=== PATIENT | female | born 1995 | race Caucasian/White ===

== ENCOUNTER 2019-11-01 08:39 | Inpatient (IN) | payer MEDICAID ==
[2019-11-01] MEDS ORDERED: Citric Acid/Sodium Citrate Solution 30 ML Cup PO ONE (08:55)
[2019-11-01] MEDS ORDERED: Sodium Chloride 0.9% 10 ML Syringe FLUSH PRN (08:55)
[2019-11-01] MEDS ORDERED: Metoclopramide 10 MG/2 ML SDV IVPUSH ONE (08:55)
[2019-11-01] MEDS ORDERED: Lactated Ringers 1,000 ML IV SCH (09:00)
--- NOTE | 2019-11-01 09:09 | PCM.HP.2 ---
H&P History of Present Illness - General Date of Service: 11/01/19 Admit Problem/Dx: Admission Diagnosis/Problem Admission Diagnosis/Problem Gestational hypertension Source of Information: Patient History Limitations: Reports: No Limitations - History of Present Illness Initial Comments - Free Text/Narative: Patient is a 24 y/o at 37 5/7 wks who presents after findings of elevated BP's at clinic/NST appointment. Was seen earlier this week for routine appointment and noted to have 2 mild range BP's in clinic. When presented to L&D BP's normal. Was asked to follow up today. Having some intermittent headaches. No vision changes. Notes good FM - Related Data Allergies/Adverse Reactions: Allergies Allergy/AdvReac Type Severity Reaction Status Date / Time No Known Allergies Allergy Verified 07/01/15 08:22 Home Medications: Home Meds Acetaminophen/oxyCODONE [Percocet 325-5 MG] 2 tab PO Q4H PRN #30 tablet [Rx] Ibuprofen [Motrin] 600 mg PO Q6H PRN #30 tablet 07/05/15 [Rx] Lanolin [Lansinoh HPA] 1 applic TOP ASDIRECTED PRN #30 tube 07/05/15 [Rx] Past Medical History Respiratory History: Reports: Asthma Neurological History: Reports: Migraines Other Dermatologic History: Eczema - Past Surgical History Female Surgical History: Reports: Section Social & Family History - Tobacco Use Smoking Status *Q: Never Smoker - Alcohol Use Alcohol Use History: No - Recreational Drug Use Recreational Drug Use: No H&P Review of Systems - Review of Systems: Review Of Systems: See Below General: Reports: No Symptoms HEENT: Reports: Headaches Pulmonary: Reports: No Symptoms Cardiovascular: Reports: No Symptoms Gastrointestinal: Reports: No Symptoms Genitourinary: Reports: No Symptoms Musculoskeletal: Reports: No Symptoms Skin: Reports: No Symptoms Psychiatric: Reports: No Symptoms Exam - Exam Exam: See Below - Exam General: Alert, Oriented, Cooperative Lungs: Clear to Auscultation, Normal Respiratory Effort Cardiovascular: Regular Rate, Regular Rhythm GI/Abdominal Exam: Soft, Non-Tender (Female) Exam: Normal External Exam Back Exam: Normal Inspection Extremities: Normal Inspection Skin: Warm, Dry, Intact - Problem List (1) 37 weeks gestation of SNOMED Code(s): 63965119 ICD Code: Z3A.37 - 37 WEEKS GESTATION OF Status: Acute Current Visit: Yes (2) Gestational hypertension SNOMED Code(s): 743682466 ICD Code: O13.9 - GESTATIONAL HTN W/O SIGNIFICANT PROTEINURIA, UNSP TRIMESTER Status: Acute Current Visit: Yes Qualifiers: Trimester: third trimester Qualified Code(s): O13.3 - Gestational [ -induced] hypertension without significant proteinuria, third trimester (3) History of SNOMED Code(s): 972882378 ICD Code: Z98.891 - HISTORY OF UTERINE SCAR FROM PREVIOUS SURGERY Status: Acute Current Visit: Yes Problem List Initiated/Reviewed/Updated: Yes Orders Last 24hrs: Active Orders 24 hr Category Date Time Status Patient Status [ADT] Routine ADT 11/01/19 08:55 Ordered Communication Order [RC] ROUTINE Care 11/01/19 08:55 Ordered Heart Tones [RC] PER UNIT ROUTINE Care 11/01/19 08:55 Ordered Non Stress Test [RC] PER UNIT ROUTINE Care 11/01/19 08:55 Ordered Peripheral IV Care [RC] . DIRECTED Care 11/01/19 08:55 Ordered Procedure Site Prep Instruct [RC] ASDIRECTED Care 11/01/19 08:55 Ordered Verify Patient Consent Obtain [RC] PER UNIT ROUTINE Care 11/01/19 08:55 Ordered Vital Signs [RC] PFP Care 11/01/19 08:55 Ordered ALANINE AMINOTRANSFERASE,ALT [CHEM] Routine Lab 11/01/19 08:55 Ordered ASPARTATE AMNIOTRANSFERASE,AST [CHEM] Routine Lab 11/01/19 08:55 Ordered CBC W/O DIFF,HEMOGRAM [HEME] Routine Lab 11/01/19 08:55 Ordered CREATININE W/GFR [CHEM] Routine Lab 11/01/19 08:55 Ordered PROTEIN/CREATININE RATIO,URINE [URCHEM] Routine Lab 11/01/19 08:55 Ordered RAPID PLASMA REAGIN,RPR [CHEM] Routine Lab 11/01/19 08:55 Ordered TYPE AND SCREEN [BBK] Routine Lab 11/01/19 08:55 Ordered Lactated Ringers @ 125 MLS/HR(1000ml) Med 11/01/19 09:00 Ordered Lactated Ringers [Ringers, Lactated] 1,000 ml IV ASDIRECTED Sodium Chloride 0.9% [Saline Flush] Med 11/01/19 08:55 Ordered 10 ml FLUSH ASDIRECTED PRN ceFAZolin [Ancef] 2 gm Med 11/01/19 08:55 Ordered Premix Bag 1 bag IV ONETIME Peripheral IV Insertion Adult [OM.PC] Routine Oth 11/01/19 08:55 Ordered Schedule Procedure [COMM] Per Unit Routine Oth 11/01/19 08:55 Ordered Resuscitation Status Routine Resus Stat 11/01/19 08:55 Ordered Medication Orders Cefazolin Sodium/Dextrose 2 gm (/ Premix) 50 mls @ 100 mls/hr IV ONETIME ONE Stop: 11/01/19 09:44 Lactated Ringer's (Ringers, Lactated) 1,000 mls @ 125 mls/hr IV ASDIRECTED JO Sodium Chloride (Saline Flush) 10 ml FLUSH ASDIRECTED PRN PRN Reason: Keep Vein Open Assessment/Plan Comment:: 24 y/o at 37 5/7 wks with findings of gestational HTN -- plan repeat c- section * Labs to be done * Close monitoring of BP's * NPO * Consent reviewed and signed * Anesthesia and Peds made aware
[2019-11-01] MEDS ORDERED: ceFAZolin 2 GM in Premix Bag 1 BAG IV ONE (09:15)
[2019-11-01] MEDS ORDERED: ceFAZolin 1 GM Vial ONE (09:18)
[2019-11-01] MEDS ORDERED: Oxytocin 10 Units/1 ML SDV ONE ×2 (09:19→12:25)
[2019-11-01] MEDS ORDERED: Ondansetron 4 MG/2 ML SDV ONE (09:21)
--- NOTE | 2019-11-01 09:26 | PCM.OPNOTE ---
- General Post-Op/Procedure Note Date of Surgery/Procedure: 11/01/19 Operative Procedure(s): Repeat low transverse Findings: Minimal scar tissue from previous surgery. Baby girl in vertex presentation. Weight of 6 lbs 4 oz. APGARS of 8 & 9. Normal appearance of the uterus, fallopian tubes, and ovaries Pre Op Diagnosis: 37 5/7 wks. Gestational HTN. Hx of Post-Op Diagnosis: Same Anesthesia Technique: Spinal Primary Surgeon: Linda Olivo Secondary Surgeon: Dany Hinojosa Anesthesia Provider: Fernandez Del Castillo Reason Director Learning And Development Was Necessary: BMI of patient. Speed/safety of procedure Pathology: Cord blood collected. Placenta discarded Fluid Replacement, Intraop: 1,700 Output, Urine Amount: 100 EBL in mLs: 500 Complications: None Condition: Good Free Text/Narrative:: The risks, benefits, indications, potential complications, and alternatives were explained to the patient and informed consent obtained. After induction of anesthesia, the patient was placed in a supine position and then draped and prepped in the usual sterile manner. A Pfannenstiel incision was made and carried down through the subcutaneous tissue to the fascia. Fascial incision was made and extended transversely. The fascia was from the underlying rectus tissue superiorly and inferiorly. The peritoneum was identified and entered. Peritoneal incision was extended longitudinally. The utero-vesical peritoneal reflection was incised transversely and the bladder flap was bluntly freed from the lower uterine segment. A low transverse uterine incision was made sharply with a scalpel and extended bluntly in a cephalocaudad direction. A baby girl was delivered from a vertex presentation with APGARS as above. After the umbilical cord was clamped and cut cord blood was obtained for evaluation. The placenta was removed intact and appeared normal. The uterus was exteriorized and cleared of clots. The uterine outline, tubes and ovaries appeared normal. The uterine incision was closed with running locked sutures of 0 Vicryl. Hemostasis was obtained with a single interrupted suture of 0 vicryl placed in figure of eight fashion and left aspect of hysterotomy. The uterus was then placed back into the abdomen. The infracolic gutters were cleared of blood clots. The fascia was then reapproximated with running sutures of 0 Vicryl. The subcutaneous tissue was irrigated with sterile warm normal saline, hemostasis obtained with cautery. This was closed with a running suture of 0 vicryl. The skin was reapproximated with running Subcuticular 4-0 monocryl sutures. Instrument, sponge, and needle counts were correct prior the abdominal closure and at the conclusion of the case.
--- NOTE | 2019-11-01 09:40 | PCM.PREANE ---
Preanesthetic Assessment - Anesthesia/Transfusion/Family Hx Anesthesia History: Prior Anesthesia Without Reaction - Review of Systems General: No Symptoms Pulmonary: No Symptoms Cardiovascular: No Symptoms Gastrointestinal: No Symptoms Neurological: No Symptoms Other: Reports: None - Physical Assessment NPO Status Date: 10/31/19 NPO Status Time: 21:00 Weight: 98.43 kg ASA Class: 3 (PI) Mental Status: Alert & Oriented x3 Airway Class: Mallampati = 1 Dentition: Reports: Normal Dentition Thyro-Mental Finger Breadths: 3 Mouth Opening Finger Breadths: 3 ROM/Head Extension: Full Lungs: Clear to Auscultation, Normal Respiratory Effort Cardiovascular: Regular Rate, Regular Rhythm - Lab Values: Laboratory Last Values WBC 11.41 K/mm3 (3.98-10.04) H 11/01/19 09:18 RBC 4.09 M/mm3 (3.98-5.22) 11/01/19 09:18 Hgb 12.9 gm/dl (11.2-15.7) 11/01/19 09:18 Hct 39.0 % (34.1-44.9) 11/01/19 09:18 MCV 95.4 fl (79.4-94.8) H 11/01/19 09:18 MCH 31.5 pg (25.6-32.2) 11/01/19 09:18 MCHC 33.1 g/dl (32.2-35.5) 11/01/19 09:18 RDW Std Deviation 43.7 fL (36.4-46.3) 11/01/19 09:18 Plt Count 236 K/mm3 (182-369) 11/01/19 09:18 MPV 9.5 fl (9.4-12.3) 11/01/19 09:18 - Allergies Allergies/Adverse Reactions: Allergies Allergy/AdvReac Type Severity Reaction Status Date / Time No Known Allergies Allergy Verified 07/01/15 08:22 - Acknowledgements Anesthesia Type Planned: Spinal Pt an Appropriate Candidate for the Planned Anesthesia: Yes Alternatives and Risks of Anesthesia Discussed w Pt/Guardian: Yes Pt/Guardian Understands and Agrees with Anesthesia Plan: Yes PreAnesthesia Questionnaire Cardiovascular History: Reports: Hypertension (pregnanacy induced) Respiratory History: Reports: Asthma Other Respiratory History: Childhood asthma Neurological History: Reports: Migraines Other Neuro History: Migraine headaches in early Other Dermatologic History: Eczema - Past Surgical History Female Surgical History: Reports: Section (06/2015) - SUBSTANCE USE Smoking Status *Q: Never Smoker Recreational Drug Use History: No - HOME MEDS Home Medications: Home Meds Acetaminophen/oxyCODONE [Percocet 325-5 MG] 2 tab PO Q4H PRN #30 tablet [Rx] Ibuprofen [Motrin] 600 mg PO Q6H PRN #30 tablet 07/05/15 [Rx] Lanolin [Lansinoh HPA] 1 applic TOP ASDIRECTED PRN #30 tube 07/05/15 [Rx] - CURRENT (IN HOUSE) MEDS Current Meds: Current Medications Cefazolin Sodium/Dextrose 2 gm (/ Premix) 50 mls @ 100 mls/hr IV ONETIME ONE Stop: 11/01/19 09:44 Lactated Ringer's (Ringers, Lactated) 1,000 mls @ 125 mls/hr IV ASDIRECTED JO Sodium Chloride (Saline Flush) 10 ml FLUSH ASDIRECTED PRN PRN Reason: Keep Vein Open Discontinued Medications Cefazolin Sodium (Ancef) Confirm Administered Dose 2 gm .ROUTE .STK-MED ONE Stop: 11/01/19 09:19 Citric Acid/Sodium Citrate (Bicitra Solution) 30 ml PO ONETIME ONE Stop: 11/01/19 08:56 Metoclopramide HCl (Reglan) 10 mg IVPUSH ONETIME ONE Stop: 11/01/19 08:56 Ondansetron HCl (Zofran) Confirm Administered Dose 4 mg .ROUTE .STK-MED ONE Stop: 11/01/19 09:22 Oxytocin (Pitocin) Confirm Administered Dose 10 unit .ROUTE .STK-MED ONE Stop: 11/01/19 09:20
[2019-11-01] MEDS ORDERED: FLU Vacc QS2019-20(6MOS+)/PF 60 MCG/0.5 ML SYRINGE IM ONE (10:15)
[2019-11-01] MEDS ORDERED: fentaNYL 100 MCG/2 ML SDV ONE (10:19)
[2019-11-01] MEDS ORDERED: Morphine PF 1 MG/ML Amp ONE (10:19)
[2019-11-01] MEDS ORDERED: fentaNYL 100 MCG/2 ML SDV IVPUSH PRN (12:00)
[2019-11-01] MEDS ORDERED: diphenhydrAMINE 50 MG/ML SDV IVPUSH PRN ×2 (12:00→14:23)
[2019-11-01] MEDS ORDERED: Ketorolac 30 MG/ML SDV ONE (12:28)
--- NOTE | 2019-11-01 12:51 | PCM.POSTAN ---
POST ANESTHESIA ASSESSMENT - MENTAL STATUS Mental Status: Alert, Oriented - VITAL SIGNS Vital Signs: Last Vital Signs Temp 97.5 F 11/01/19 12:36 Pulse 91 11/01/19 12:36 Resp 12 11/01/19 12:36 BP 143/78 H 11/01/19 12:36 Pulse Ox 99 11/01/19 12:36 - RESPIRATORY Respiratory Status: Respiratory Rate WNL, Airway Patent, O2 Saturation Stable - CARDIOVASCULAR CV Status: Pulse Rate WNL, Blood Pressure Stable - GASTROINTESTINAL GI Status: No Symptoms - PAIN Pain Score: 0 (post SAB) - POST OP HYDRATION Hydration Status: Adequate & Stable
[2019-11-01] MEDS ORDERED: Naloxone 0.4 MG/ML SDV IVPUSH PRN (14:23)
[2019-11-01] MEDS ORDERED: Sennosides 8.6 MG Tab PO PRN (14:23)
[2019-11-01] MEDS ORDERED: Acetaminophen/oxyCODONE 325-5 MG Tab PO PRN (14:23)
[2019-11-01] MEDS ORDERED: Dextrose 5%-Lactated Ringers 1,000 ML IV SCH (14:23)
[2019-11-01] MEDS ORDERED: Ondansetron 4 MG/2 ML SDV IV PRN (14:23)
[2019-11-01] MEDS: Ketorolac 30 MG/ML SDV IVPUSH SCH (18:37)
[2019-11-02] MEDS: Ketorolac 30 MG/ML SDV IVPUSH SCH ×2 (00:39→06:59)
--- NOTE | 2019-11-02 09:01 | PCM.SN ---
- Free Text/Narrative Note: note: Patient is doing well in the period. Minimal lochia, voiding well, ambulated without problems. Nursing without concerns. Patient is afebrile, vital signs are stable Vital signs are stable. Blood pressures are completely normal. Abdomen is flat, soft, uterus is below the umbilicus and is firm and nontender. Incision appears to be dry, intact, dressing was removed. It was left open to the air. Legs are nontender. Assessment: recovery going well. Plan: Routine care. Increase activity, diet. Remove IV tolerating fluids well. May shower. Indwelling bladder catheter has been removed. Patient has not voided yet. Patient be discharged home within the next 24-48 hours.
[2019-11-02] MEDS: Ibuprofen 600 MG Tab PO PRN (15:58)
[2019-11-02] MEDS: Docusate Sodium 100 MG Cap PO PRN (20:44)
[2019-11-02] MEDS: Acetaminophen/oxyCODONE 325-5 MG Tab PO PRN (20:44)
[2019-11-03] MEDS: Ibuprofen 600 MG Tab PO PRN ×3 (04:11→18:26)
--- NOTE | 2019-11-03 07:41 | PCM.SN ---
- Free Text/Narrative Note: note: Patient is doing well in the period. Minimal lochia, voiding well, ambulated without problems. Nursing without concerns. Patient is afebrile, vital signs are stable Abdomen is flat, soft, uterus is below the umbilicus and is firm and nontender. Incision dry, intact. Legs are nontender. Hemoglobin on first postoperative day was 10.8. Platelets are 178,000. Assessment: recovery going well. Plan: Routine care. Patient be discharged home within the next 24- 48 hours.
[2019-11-03] MEDS: Acetaminophen/oxyCODONE 325-5 MG Tab PO PRN ×2 (09:17→18:26)
[2019-11-03] MEDS: Docusate Sodium 100 MG Cap PO PRN (10:38)
--- NOTE | 2019-11-03 15:56 | PCM48HPAN ---
Post Anesthesia Note - EVALUATION WITHIN 48HRS OF ANESTHETIC Vital Signs in Normal Range: Yes Patient Participated in Evaluation: Yes Respiratory Function Stable: Yes Airway Patent: Yes Cardiovascular Function Stable: Yes Hydration Status Stable: Yes Pain Control Satisfactory: Yes Nausea and Vomiting Control Satisfactory: Yes Mental Status Recovered: Yes (sitting up in bed eating. no complaints) Vital Signs: Last Vital Signs Temp 96.3 F L 11/03/19 15:25 Pulse 86 11/03/19 15:25 Resp 15 11/03/19 15:25 BP 130/83 11/03/19 15:25 Pulse Ox 97 11/03/19 15:25
[2019-11-04] MEDS: Ibuprofen 600 MG Tab PO PRN ×2 (00:40→09:42)
[2019-11-04] MEDS: Acetaminophen/oxyCODONE 325-5 MG Tab PO PRN ×2 (00:41→09:42)
--- NOTE | 2019-11-04 10:50 | PCM.PNPP ---
- General Info Date of Service: 11/04/19 Functional Status: Reports: Pain Controlled, Tolerating Diet, Ambulating, Urinating - Review of Systems General: Reports: No Symptoms Pulmonary: Reports: No Symptoms Cardiovascular: Reports: No Symptoms Gastrointestinal: Reports: No Symptoms Genitourinary: Reports: No Symptoms Musculoskeletal: Reports: No Symptoms - General Info Date of Service: 11/04/19 - Patient Data Vital Signs - Most Recent: Last Vital Signs Temp 36.5 C 11/04/19 02:52 Pulse 73 11/04/19 02:52 Resp 16 11/04/19 02:52 BP 132/79 11/04/19 02:52 Pulse Ox 95 11/04/19 02:52 Weight - Most Recent: 98.384 kg I&O - Last 24 Hours: Intake & Output 11/03/19 11/04/19 11/04/19 22:59 06:59 14:59 Intake Total 120 Balance 120 Med Orders - Current: Current Medications Diphenhydramine HCl (Benadryl) 25 mg IVPUSH Q6H PRN PRN Reason: Itching or Nausea Docusate Sodium (Colace) 100 mg PO Q12H PRN PRN Reason: Constipation Last Admin: 11/03/19 10:38 Dose: 100 mg Ibuprofen (Motrin) 600 mg PO Q6H PRN PRN Reason: mild pain or fever Last Admin: 11/04/19 09:42 Dose: 600 mg Naloxone HCl (Narcan) 0.1 mg IVPUSH SEECOMMENT PRN PRN Reason: Respiratory Depression Ondansetron HCl (Zofran) 4 mg IV Q8H PRN PRN Reason: Nausea/Vomiting Oxycodone/Acetaminophen (Percocet 325-5 Mg) 1 tab PO Q4H PRN PRN Reason: Pain (moderate 4-6) Last Admin: 11/04/19 09:42 Dose: 1 tab Oxycodone/Acetaminophen (Percocet 325-5 Mg) 2 tab PO Q4H PRN PRN Reason: Pain (severe 7-10) Last Admin: 11/03/19 04:11 Dose: 2 tab Senna (Senna) 8.6 mg PO BEDTIME PRN PRN Reason: Constipation Discontinued Medications Cefazolin Sodium (Ancef) Confirm Administered Dose 2 gm .ROUTE .STK-MED ONE Stop: 11/01/19 09:19 Citric Acid/Sodium Citrate (Bicitra Solution) 30 ml PO ONETIME ONE Stop: 11/01/19 08:56 Last Admin: 11/01/19 10:18 Dose: 30 ml Diphenhydramine HCl (Benadryl) 25 mg IVPUSH Q6H PRN PRN Reason: Pruritis Fentanyl (Sublimaze) Confirm Administered Dose 100 mcg .ROUTE .STK-MED ONE Stop: 11/01/19 10:20 Fentanyl (Sublimaze) 50 mcg IVPUSH Q5M PRN PRN Reason: Pain Cefazolin Sodium/Dextrose 2 gm (/ Premix) 50 mls @ 100 mls/hr IV ONETIME ONE Stop: 11/01/19 09:44 Lactated Ringer's (Ringers, Lactated) 1,000 mls @ 125 mls/hr IV ASDIRECTED [facility] Last Admin: 11/01/19 09:45 Dose: 125 mls/hr Dextrose/Lactated Ringer's (Dextrose 5%-Lactated Ringers) 1,000 mls @ 125 mls/ hr IV ASDIRECTED [facility] Stop: 11/01/19 22:22 Last Admin: 11/01/19 14:38 Dose: 125 mls/hr Influenza Virus Vaccine (Fluzone Quad [id number] Syringe) 60 mcg IM .ONCE ONE Stop: 11/01/19 10:16 Last Admin: 11/03/19 13:40 Dose: 60 mcg Ketorolac Tromethamine (Toradol) Confirm Administered Dose 30 mg .ROUTE .STK- MED ONE Stop: 11/01/19 12:29 Ketorolac Tromethamine (Toradol) 30 mg IVPUSH Q6H [facility] Stop: 11/02/19 06:31 Last Admin: 11/02/19 06:59 Dose: 30 mg Metoclopramide HCl (Reglan) 10 mg IVPUSH ONETIME ONE Stop: 11/01/19 08:56 Last Admin: 11/01/19 10:18 Dose: 10 mg Morphine Sulfate (Duramorph Pf) Confirm Administered Dose 1 mg .ROUTE .STK-MED ONE Stop: 11/01/19 10:20 Ondansetron HCl (Zofran) Confirm Administered Dose 4 mg .ROUTE .STK-MED ONE Stop: 11/01/19 09:22 Oxytocin (Pitocin) Confirm Administered Dose 10 unit .ROUTE .STK-MED ONE Stop: 11/01/19 09:20 Oxytocin (Pitocin) Confirm Administered Dose 10 unit .ROUTE .STK-MED ONE Stop: 11/01/19 12:26 Sodium Chloride (Saline Flush) 10 ml FLUSH ASDIRECTED PRN PRN Reason: Keep Vein Open - Interaction Infant Disposition, : [place] in Room with Family Infant Interaction: Holding Infant Feeding: Breastfed Infant; Nursed Well Support Person: Significant Other - Recovery Exam Fundal Tone: Firm Fundal Level: 1 Fingerbreadths Below Umbilicus Fundal Placement: Midline Lochia Amount: Scant Lochia Color: Rubra/Red Episiotomy/Laceration: None Bladder Status: Voiding Urinary Elimination: Voided - Exam General: Alert, Oriented, Cooperative Lungs: Clear to Auscultation, Normal Respiratory Effort Cardiovascular: Regular Rate, Regular Rhythm GI/Abdominal Exam: Soft, Tender (appropriate) Extremities: Normal Inspection Skin: Warm, Dry, Intact Wound/Incisions: Healing Well, No Drainage - Problem List & Annotations (1) 37 weeks gestation of SNOMED Code(s): 71863466 Code(s): Z3A.37 - 37 WEEKS GESTATION OF Status: Acute (2) Gestational hypertension SNOMED Code(s): 911778502 Code(s): O13.9 - GESTATIONAL HTN W/O SIGNIFICANT PROTEINURIA, UNSP TRIMESTER Status: Acute Qualifiers: Trimester: third trimester Qualified Code(s): O13.3 - Gestational [ -induced] hypertension without significant proteinuria, third trimester (3) History of SNOMED Code(s): 615900663 Code(s): Z98.891 - HISTORY OF UTERINE SCAR FROM PREVIOUS SURGERY Status: Acute - Problem List Review Problem List Initiated/Reviewed/Updated: Yes - My Orders Last 24 Hours: My Active Orders 11/04/19 10:49 Ready for Discharge [RC] PER UNIT ROUTINE - Assessment Assessment:: POD#3 - Plan Plan:: * BP's appropriate, follow up in 1 week for BP check * Routine cares * Discharge home today
--- NOTE | 2019-11-04 10:50 | PCM.DCSUM1 ---
Discharge Summary - Discharge Data Discharge Date: 11/04/19 Discharge Disposition: Home, Self-Care 01 Condition: Good - Referral to Home Health Primary Care Physician: Linda Olivo MD - Discharge Diagnosis/Problem(s) (1) 37 weeks gestation of SNOMED Code(s): 16227417 ICD Code: Z3A.37 - 37 WEEKS GESTATION OF Status: Acute (2) Gestational hypertension SNOMED Code(s): 513130144 ICD Code: O13.9 - GESTATIONAL HTN W/O SIGNIFICANT PROTEINURIA, UNSP TRIMESTER Status: Acute Qualifiers: Trimester: third trimester Qualified Code(s): O13.3 - Gestational [ -induced] hypertension without significant proteinuria, third trimester (3) History of SNOMED Code(s): 490184767 ICD Code: Z98.891 - HISTORY OF UTERINE SCAR FROM PREVIOUS SURGERY Status: Acute - Patient Summary/Data Operative Procedure(s) Performed: Repeat low transverse Complications: None Consults: None Recommended Follow-up Testing/Procedures: Follow up in 1 week for BP check Hospital Course: 24 y/o at 37 5/7 wks who presented to clinic with findings of mild range BP's. Given options and elected to proceed with RLTCS. This was uncomplicated. See operative note. did well. BP's normal to mild range. Was discharged home on POD#3 - Patient Instructions Diet: Regular Diet as Tolerated Activity: No Lifting Over 10 Pounds Activity, Other: Pelvic rest for 6 weeks Driving: Do Not Drive (While taking narcotics ) Showering/Bathing: May Shower, No Tub Bathing/Swimming Wound/Incision Care: Keep Operative Site/Wound Site Clean and Dry Notify Provider of: Fever, Increased Pain, Swelling and Redness, Drainage, Nausea and/or Vomiting - Discharge Plan *PRESCRIPTION DRUG MONITORING PROGRAM REVIEWED*: No *COPY OF PRESCRIPTION DRUG MONITORING REPORT IN PATIENT VALE: No Prescriptions/Med Rec: Acetaminophen/oxyCODONE [Percocet 325-5 MG] 1 - 2 tab PO Q4H PRN #20 tablet PRN Reason: Pain (Severe 7-10) Home Medications: Home Meds Pnv No.95/Ferrous Fum/Folic AC [ Vitamin Tablet] 1 tab PO DAILY [History] Acetaminophen/oxyCODONE [Percocet 325-5 MG] 1 - 2 tab PO Q4H PRN #20 tablet [Rx] Docusate Sodium [Colace] 100 mg PO Q12H PRN cap 11/04/19 [Rx] Ibuprofen [Motrin] 600 mg PO Q6H PRN tablet 11/04/19 [Rx] Patient Handouts: Delivery, Care After Referrals: Linad Olivo MD [Primary Care Provider] - (1 week RN only BP check 3 weeks for check ) - Discharge Summary/Plan Comment DC Time >30 min.: No - Patient Data Vitals - Most Recent: Last Vital Signs Temp 36.5 C 11/04/19 02:52 Pulse 73 11/04/19 02:52 Resp 16 11/04/19 02:52 BP 132/79 11/04/19 02:52 Pulse Ox 95 11/04/19 02:52 Weight - Most Recent: 98.384 kg I&O - Last 24 hours: Intake & Output 11/03/19 11/04/19 11/04/19 22:59 06:59 14:59 Intake Total 120 Balance 120 Med Orders - Current: Current Medications Diphenhydramine HCl (Benadryl) 25 mg IVPUSH Q6H PRN PRN Reason: Itching or Nausea Docusate Sodium (Colace) 100 mg PO Q12H PRN PRN Reason: Constipation Last Admin: 11/03/19 10:38 Dose: 100 mg Ibuprofen (Motrin) 600 mg PO Q6H PRN PRN Reason: mild pain or fever Last Admin: 11/04/19 09:42 Dose: 600 mg Naloxone HCl (Narcan) 0.1 mg IVPUSH SEECOMMENT PRN PRN Reason: Respiratory Depression Ondansetron HCl (Zofran) 4 mg IV Q8H PRN PRN Reason: Nausea/Vomiting Oxycodone/Acetaminophen (Percocet 325-5 Mg) 1 tab PO Q4H PRN PRN Reason: Pain (moderate 4-6) Last Admin: 11/04/19 09:42 Dose: 1 tab Oxycodone/Acetaminophen (Percocet 325-5 Mg) 2 tab PO Q4H PRN PRN Reason: Pain (severe 7-10) Last Admin: 11/03/19 04:11 Dose: 2 tab Senna (Senna) 8.6 mg PO BEDTIME PRN PRN Reason: Constipation Discontinued Medications Cefazolin Sodium (Ancef) Confirm Administered Dose 2 gm .ROUTE .STK-MED ONE Stop: 11/01/19 09:19 Citric Acid/Sodium Citrate (Bicitra Solution) 30 ml PO ONETIME ONE Stop: 11/01/19 08:56 Last Admin: 11/01/19 10:18 Dose: 30 ml Diphenhydramine HCl (Benadryl) 25 mg IVPUSH Q6H PRN PRN Reason: Pruritis Fentanyl (Sublimaze) Confirm Administered Dose 100 mcg .ROUTE .STK-MED ONE Stop: 11/01/19 10:20 Fentanyl (Sublimaze) 50 mcg IVPUSH Q5M PRN PRN Reason: Pain Cefazolin Sodium/Dextrose 2 gm (/ Premix) 50 mls @ 100 mls/hr IV ONETIME ONE Stop: 11/01/19 09:44 Lactated Ringer's (Ringers, Lactated) 1,000 mls @ 125 mls/hr IV ASDIRECTED [facility] Last Admin: 11/01/19 09:45 Dose: 125 mls/hr Dextrose/Lactated Ringer's (Dextrose 5%-Lactated Ringers) 1,000 mls @ 125 mls/ hr IV ASDIRECTED [facility] Stop: 11/01/19 22:22 Last Admin: 11/01/19 14:38 Dose: 125 mls/hr Influenza Virus Vaccine (Fluzone Quad [id number] Syringe) 60 mcg IM .ONCE ONE Stop: 11/01/19 10:16 Last Admin: 11/03/19 13:40 Dose: 60 mcg Ketorolac Tromethamine (Toradol) Confirm Administered Dose 30 mg .ROUTE .STK- MED ONE Stop: 11/01/19 12:29 Ketorolac Tromethamine (Toradol) 30 mg IVPUSH Q6H [facility] Stop: 11/02/19 06:31 Last Admin: 11/02/19 06:59 Dose: 30 mg Metoclopramide HCl (Reglan) 10 mg IVPUSH ONETIME ONE Stop: 11/01/19 08:56 Last Admin: 11/01/19 10:18 Dose: 10 mg Morphine Sulfate (Duramorph Pf) Confirm Administered Dose 1 mg .ROUTE .STK-MED ONE Stop: 11/01/19 10:20 Ondansetron HCl (Zofran) Confirm Administered Dose 4 mg .ROUTE .STK-MED ONE Stop: 11/01/19 09:22 Oxytocin (Pitocin) Confirm Administered Dose 10 unit .ROUTE .STK-MED ONE Stop: 11/01/19 09:20 Oxytocin (Pitocin) Confirm Administered Dose 10 unit .ROUTE .STK-MED ONE Stop: 11/01/19 12:26 Sodium Chloride (Saline Flush) 10 ml FLUSH ASDIRECTED PRN PRN Reason: Keep Vein Open
[2019-11-04 11:42] VITALS: BP 133/78; PULSE 99
== END 2019-11-04 13:05 | disposition home or self-care (01) | DRG 788 ==
LOC: JD.OBCHECK 08:39 → JD.OB 08:42 → JD.OBCHECK 08:55
PROVIDERS: ADMIT Obstetrics & Gynecology; ATTEND Obstetrics & Gynecology
PROC: 10D00Z1 Extraction of Products of Conception, Low, Open Approach (ICD-10-PCS; principal; 2019-11-01)
PROC: 3E0334Z Introduction of Serum, Toxoid and Vaccine into Peripheral Vein, Percutaneous Approach (ICD-10-PCS; 2019-11-01)
PROC: 3E02340 Introduction of Influenza Vaccine into Muscle, Percutaneous Approach (ICD-10-PCS; 2019-11-01)
DX: O34.211 Maternal care for low transverse scar from previous cesarean delivery (principal); Z37.0 Single live birth; Z3A.37 37 weeks gestation of pregnancy; O13.4 Gestational [pregnancy-induced] hypertension without significant proteinuria, complicating childbirth; O26.893 Other specified pregnancy related conditions, third trimester; Z67.41 Type O blood, Rh negative
CPT/HCPCS: 01961; 36415; 36430; 59025; 82565; 82570; 84156; 84450; 84460; 85027; 85461; 86592; 86850; 86870; 86900; 86901; 87070; 87641; 90686; 94762; A9270-GY; G0008; J0690; J1885; J2274; J2405; J2590; J2765; J2790; J3010; J7120; J7121

== ENCOUNTER 2021-06-10 05:40 | Inpatient (IN) | payer MEDICAID ==
[~2021-06-10 05:40] MED LIST: Lactated Ringers 1,000 ML IV SCH; Sodium Chloride 0.9% 10 ML Syringe FLUSH PRN
[2021-06-10] MEDS ORDERED: Citric Acid/Sodium Citrate Solution 30 ML Cup PO ONE (06:30)
[2021-06-10] MEDS ORDERED: Metoclopramide 10 MG/2 ML SDV IVPUSH ONE (06:30)
--- NOTE | 2021-06-10 06:54 | PCM.OPNOTE ---
- General Post-Op/Procedure Note Date of Surgery/Procedure: 06/10/21 Operative Procedure(s): Repeat low transverse Findings: Baby girl in VTX presentation. APGARS of 8 & 9. Very thin KENNEDY noted. RECOMMEND EARLY TERM DELIVERY IF SUBSEQUENT . Normal appearance of fallopian tubes and ovaries. Pre Op Diagnosis: 39 1/7 wks. History of c-sectionx2. GODMA2 Post-Op Diagnosis: Same Anesthesia Technique: Spinal Primary Surgeon: Linda Olivo Secondary Surgeon: Irma Paul Anesthesia Provider: Alexis Caruso Reason Quality Control Inspector Heading Was Necessary: BMI of patient, speed/safety of procedure Pathology: Cord blood collected. Placenta discarded. Fluid Replacement, Intraop: 2,200 Output, Urine Amount: 100 EBL in mLs: 900 Complications: None Condition: Good Free Text/Narrative:: The risks, benefits, indications, potential complications, and alternatives were explained to the patient and informed consent obtained. After induction of anesthesia, the patient was placed in a supine position and then draped and prepped in the usual sterile manner. A Pfannenstiel incision was made and carried down through the subcutaneous tissue to the fascia. Fascial incision was made and extended transversely. The fascia was from the underlying rectus tissue superiorly and inferiorly. There was bleeding from a vessel on patient's left with this dissection that was controlled with a running, locked suture of 0 Vicryl. The peritoneum was identified and entered. Peritoneal incision was extended longitudinally. The utero-vesical peritoneal reflection was incised transversely and the bladder flap was bluntly freed from the lower uterine segment. A low transverse uterine incision was made sharply with a scalpel and extended bluntly in a cephalocaudad direction. A baby girl was delivered from a vertex presentation with APGARS as above. After the umbilical cord was clamped and cut cord blood was obtained for evaluation. The placenta was removed intact and appeared normal. The uterus was exteriorized and cleared of clots. The uterine outline, tubes and ovaries appeared normal. The uterine incision was closed with running locked sutures of 0 Vicryl. Hemostasis was noted. The uterus was then placed back into the abdomen. The infracolic gutters were cleared of blood clots. The fascia was then reapproximated with running sutures of 0 Vicryl. The subcutaneous tissue was irrigated with sterile warm normal saline, hemostasis obtained with cautery. This was also closed with a running 0 Vicryl. The skin was reapproximated with running Subcuticular 4-0 Monocryl sutures. Instrument, sponge, and needle counts were correct prior the abdominal closure and at the conclusion of the case.
[2021-06-10] MEDS ORDERED: Phenylephrine 1% 10 MG/ML SDV ONE (07:15)
[2021-06-10] MEDS ORDERED: ceFAZolin 1 GM Vial ONE (07:15)
[2021-06-10] MEDS ORDERED: Morphine PF 10 MG/10 ML SDV ONE (07:15)
[2021-06-10] MEDS ORDERED: Oxytocin/Lactated Ringers 10 UNIT/1,000 ML BAG IV SCH ×2 (07:30→11:15)
[2021-06-10] MEDS ORDERED: ceFAZolin 2 GM in Premix Bag 1 BAG IV ONE ×2 (07:30→12:45)
[2021-06-10] MEDS ORDERED: Lactated Ringers 1,000 ML ONE ×2 (07:48→08:13)
[2021-06-10] MEDS ORDERED: Oxytocin 10 Units/1 ML SDV ONE (08:02)
[2021-06-10] MEDS ORDERED: Ketorolac 30 MG/ML SDV ONE (08:17)
--- NOTE | 2021-06-10 08:38 | PCM.POSTAN ---
POST ANESTHESIA ASSESSMENT - MENTAL STATUS Mental Status: Alert, Oriented - VITAL SIGNS Vital Signs: Last Vital Signs Temp 36.7 C 06/10/21 06:03 Pulse 121 H 06/10/21 06:03 Resp 14 06/10/21 06:03 BP 149/93 H 06/10/21 06:03 Pulse Ox 98 06/10/21 06:03 - RESPIRATORY Respiratory Status: Respiratory Rate WNL, Airway Patent, O2 Saturation Stable - CARDIOVASCULAR CV Status: Pulse Rate WNL, Blood Pressure Stable - GASTROINTESTINAL GI Status: No Symptoms - PAIN Pain Score: 0 - POST OP HYDRATION Hydration Status: Adequate & Stable - OBSERVATIONS Free Text/Narrative:: no anesthesia complications noted
--- NOTE | 2021-06-10 08:39 | PCM.PREANE ---
Preanesthetic Assessment - Procedure Proposed Procedure: Repeat - Anesthesia/Transfusion/Family Hx Anesthesia History: Prior Anesthesia Without Reaction Family History of Anesthesia Reaction: No Transfusion History: No Prior Transfusion(s) - Review of Systems General: No Symptoms Pulmonary: No Symptoms Cardiovascular: No Symptoms, Dyspnea on Exertion Gastrointestinal: No Symptoms Neurological: No Symptoms Other: Reports: None - Physical Assessment NPO Status Date: 06/09/21 NPO Status Time: 00:00 Vital Signs: Last Vital Signs Temp 36.7 C 06/10/21 06:03 Pulse 121 H 06/10/21 06:03 Resp 14 06/10/21 06:03 BP 149/93 H 06/10/21 06:03 Pulse Ox 98 06/10/21 06:03 Height: 1.6 m Weight: 99.427 kg ASA Class: 2 Mental Status: Alert & Oriented x3 Airway Class: Mallampati = 2 Dentition: Reports: Normal Dentition Thyro-Mental Finger Breadths: 2 Mouth Opening Finger Breadths: 2 ROM/Head Extension: Full Lungs: Clear to Auscultation, Normal Respiratory Effort Cardiovascular: Regular Rate, Regular Rhythm - Lab Values: Laboratory Last Values WBC 11.94 K/mm3 (3.98-10.04) H 06/10/21 06:00 RBC 4.46 M/mm3 (3.98-5.22) 06/10/21 06:00 Hgb 13.5 gm/dl (11.2-15.7) D 06/10/21 06:00 Hct 41.9 % (34.1-44.9) 06/10/21 06:00 MCV 93.9 fl (79.4-94.8) 06/10/21 06:00 MCH 30.3 pg (25.6-32.2) 06/10/21 06:00 MCHC 32.2 g/dl (32.2-35.5) 06/10/21 06:00 RDW Std Deviation 45.0 fL (36.4-46.3) 06/10/21 06:00 Plt Count 286 K/mm3 (182-369) D 06/10/21 06:00 MPV 9.3 fl (9.4-12.3) L 06/10/21 06:00 Neut % (Auto) 71.3 % (34.0-71.1) H 06/10/21 06:00 Lymph % (Auto) 17.8 % (19.3-51.7) L 06/10/21 06:00 [place] % (Auto) 10.0 % (4.7-12.5) 06/10/21 06:00 Eos % (Auto) 0.5 (0.7-5.8) L 06/10/21 06:00 Baso % (Auto) 0.1 % (0.1-1.2) 06/10/21 06:00 Neut # (Auto) 8.53 K/mm3 (1.56-6.13) H 06/10/21 06:00 Lymph # (Auto) 2.12 K/mm3 (1.18-3.74) 06/10/21 06:00 [place] # (Auto) 1.19 K/mm3 (0.24-0.36) H 06/10/21 06:00 Eos # (Auto) 0.06 K/mm3 (0.04-0.36) 06/10/21 06:00 Baso # (Auto) 0.01 K/mm3 (0.01-0.08) 06/10/21 06:00 Creatinine 0.7 mg/dL (0.55-1.02) 06/10/21 06:00 Est Cr Clr Drug Dosing TNP 06/10/21 06:00 Estimated GFR (MDRD) > 60 mL/min (>60) 06/10/21 06:00 POC Glucose 83 mg/dL (70-99) 06/10/21 06:13 AST 15 U/L (15-37) 06/10/21 06:00 ALT 27 U/L (14-59) 06/10/21 06:00 SARS-CoV-2 RNA (AMINTA) Negative (NEGATIVE) 06/10/21 06:08 Blood Type O NEGATIVE 06/10/21 06:00 - Allergies Allergies/Adverse Reactions: Allergies Allergy/AdvReac Type Severity Reaction Status Date / Time No Known Allergies Allergy Verified 11/01/19 09:50 - Anesthesia Plan Pre-Op Medication Ordered: Antacids - Acknowledgements Anesthesia Type Planned: Spinal Pt an Appropriate Candidate for the Planned Anesthesia: Yes Alternatives and Risks of Anesthesia Discussed w Pt/Guardian: Yes Pt/Guardian Understands and Agrees with Anesthesia Plan: Yes PreAnesthesia Questionnaire Cardiovascular History: Reports: Hypertension Respiratory History: Reports: Asthma Other Respiratory History: Childhood asthma [employer] History: Reports: , Other (See Below) Other OB/BYN History: Primary C/S 2015, abnormal PAP Neurological History: Reports: Migraines Other Neuro History: Migraine headaches in early Psychiatric History: Reports: Anxiety, Depression Endocrine/Metabolic History: Reports: Diabetes, Gestational Other Dermatologic History: Eczema - Infectious Disease History Infectious Disease History: Reports: MRSA Other Infectious Disease History: 2011 MRSA on ingrown hair on pubic area. - tested negative 04/2021 - Past Surgical History Female Surgical History: Reports: Section - SUBSTANCE USE Tobacco Use Status *Q: Never Tobacco User Second Hand Smoke Exposure: No Recreational Drug Use History: No - HOME MEDS Home Medications: Home Meds Pnv No.95/Ferrous Fum/Folic AC [ Vitamin Tablet] 1 tab PO DAILY 11/01/19 [History] Escitalopram [Lexapro] 20 mg PO DAILY 06/10/21 [History] Insulin Detemir [Levemir] 14 unit SUBCUT BEDTIME 06/10/21 [History] Multivit-Min/Calc/Biotin/D3/FA [Biotin Plus-Calcium & Vit D3] 1 each PO DAILY [History] - CURRENT (IN HOUSE) MEDS Current Meds: Current Medications Oxytocin/Lactated Ringer's (Pitocin In Lr 10 Units/1,000 Ml) 10 unit in 1,000 mls @ 100 mls/hr IV ASDIRECTED JO; Protocol Lactated Ringer's (Ringers, Lactated) 1,000 mls @ 125 mls/hr IV ASDIRECTED JO Last Admin: 06/10/21 08:37 Dose: 125 mls/hr Documented by: Influenza Virus Vaccine (Flu Vacc [id number] 36mos Up/Pf 60 Mcg/0.5 Ml Syringe) 60 mcg IM .ONCE ONE Stop: 06/11/21 08:16 Sodium Chloride (Sodium Chloride 0.9% 10 Ml Syringe) 10 ml FLUSH ASDIRECTED PRN PRN Reason: Keep Vein Open Discontinued Medications Cefazolin Sodium (Cefazolin 1 Gm Vial) Confirm Administered Dose 2 gm .ROUTE .STK-MED ONE Stop: 06/10/21 07:16 Citric Acid/Sodium Citrate (Citric Acid/Sodium Citrate Solution 30 Ml Cup) 30 ml PO ONETIME ONE Stop: 06/10/21 06:31 Last Admin: 06/10/21 07:16 Dose: 30 ml Documented by: Cefazolin Sodium/Dextrose 2 gm (/ Premix) 50 mls @ 100 mls/hr IV ONETIME ONE Stop: 06/10/21 07:59 Lactated Ringer's (Ringers, Lactated) Confirm Administered Dose 1,000 mls @ as directed .ROUTE .STK-MED ONE Stop: 06/10/21 07:49 Lactated Ringer's (Ringers, Lactated) Confirm Administered Dose 1,000 mls @ as directed .ROUTE .ST-MED ONE Stop: 06/10/21 08:14 Ketorolac Tromethamine (Ketorolac 30 Mg/Ml Sdv) Confirm Administered Dose 30 mg .ROUTE .ST-MED ONE Stop: 06/10/21 08:18 Metoclopramide HCl (Metoclopramide 10 Mg/2 Ml Sdv) 10 mg IVPUSH ONETIME ONE Stop: 06/10/21 06:31 Last Admin: 06/10/21 07:17 Dose: 10 mg Documented by: Morphine Sulfate (Morphine Pf 10 Mg/10 Ml Sdv) Confirm Administered Dose 10 mg .ROUTE .STK-MED ONE Stop: 06/10/21 07:16 Oxytocin (Oxytocin 10 Units/1 Ml Sdv) Confirm Administered Dose 10 unit .ROUTE .STK-MED ONE Stop: 06/10/21 08:03 Phenylephrine HCl (Phenylephrine 1% 10 Mg/Ml Sdv) Confirm Administered Dose 10 mg .ROUTE .STK-MED ONE Stop: 06/10/21 07:16
[2021-06-10] MEDS ORDERED: Meperidine 50 MG/ML Vial IVPUSH STA (08:52)
[2021-06-10] MEDS ORDERED: Naloxone 0.4 MG/ML SDV IVPUSH PRN (09:57)
[2021-06-10] MEDS ORDERED: Dextrose 5%-Lactated Ringers 1,000 ML IV SCH ×2 (09:57→20:30)
[2021-06-10] MEDS ORDERED: ePHEDrine 50 MG/ML SDV IVPUSH PRN (09:57)
[2021-06-10] MEDS ORDERED: diphenhydrAMINE 50 MG/ML SDV IVPUSH PRN (09:57)
[2021-06-10] MEDS ORDERED: Misoprostol 100 MCG Tab PO ONE (11:07)
[2021-06-10] MEDS ORDERED: Misoprostol 200 MCG Tab ONE (11:10)
[2021-06-10] MEDS ORDERED: Oxytocin/Lactated Ringers 10 UNIT/1,000 ML BAG IV ONE (11:11)
[2021-06-10] MEDS ORDERED: Methylergonovine 0.2 MG/1 ML Amp IM STA (13:39)
[2021-06-10] MEDS ORDERED: Methylergonovine 0.2 MG/1 ML Amp ONE (13:42)
[2021-06-10] MEDS: Ketorolac 30 MG/ML SDV IVPUSH SCH ×2 (14:40→20:29)
--- NOTE | 2021-06-10 18:28 | PCM.SN.2 ---
- Free Text/Narrative Note: 1230 Called by RN after delivery that patient wtih continued slow bleeding. Was started on 2nd bag of Pitocin and also given 600 mcg of buccal Cytotec, but without resolution. Presented to patient and exam showed cervix dilated about 2 cm and with clot felt in KENNEDY. This was teased out manually and with ring forcep s. Given 0.2 of Methergine and 2 grams ancef with good resolution of bleeding. Continue to monitor closely Linda Olivo Time Documentation
[2021-06-10] MEDS: Docusate Sodium 100 MG Cap PO PRN (20:29)
[2021-06-11] MEDS: Ketorolac 30 MG/ML SDV IVPUSH SCH (02:28)
--- NOTE | 2021-06-11 06:51 | PCM.PNPP ---
- General Info Date of Service: 06/11/21 Functional Status: Reports: Pain Controlled, Tolerating Diet, Ambulating, Urinating - Review of Systems General: Reports: No Symptoms Pulmonary: Reports: No Symptoms Cardiovascular: Reports: No Symptoms Gastrointestinal: Reports: No Symptoms Genitourinary: Reports: No Symptoms Musculoskeletal: Reports: No Symptoms - Patient Data Vital Signs - Most Recent: Last Vital Signs Temp 36.4 C 06/11/21 02:37 Pulse 77 06/11/21 02:37 Resp 14 06/11/21 06:00 BP 115/76 06/11/21 02:37 Pulse Ox 100 06/11/21 06:00 Weight - Most Recent: 99.427 kg I&O - Last 24 Hours: Intake & Output 06/10/21 06/10/21 06/11/21 14:59 22:59 06:59 Intake Total 2452 2500 500 Output Total 5998 471 5618 Balance 609 1760 -1080 Lab Results - Last 24 Hours: Laboratory Results - last 24 hr 06/10/21 06/10/21 06/10/21 Range/Units 06:00 06:00 06:00 WBC (3.98-10.04) K/mm3 RBC (3.98-5.22) M/mm3 Hgb (11.2-15.7) gm/dl Hct (34.1-44.9) % MCV (79.4-94.8) fl MCH (25.6-32.2) pg MCHC (32.2-35.5) g/dl RDW Std Deviation (36.4-46.3) fL Plt Count (182-369) K/mm3 MPV (9.4-12.3) fl Creatinine (0.55-1.02) mg/dL Est Cr Clr Drug Dosing Estimated GFR (MDRD) (>60) mL/min POC Glucose (70-99) mg/dL AST 15 (15-37) U/L ALT 27 (14-59) U/L Ur Random Creatinine (30.0-125.0) mg/dL U Random Total Protein (0.0-11.8) mg/dL Protein/Creatinin Ratio (0-149) mg/g RPR Non-reactive (NONREACTIVE) SARS-CoV-2 RNA (AMINTA) (NEGATIVE) Blood Type O NEGATIVE Gel Antibody Screen Negative Screen RhIG Candidate? Rhogam Indicated 06/10/21 06/10/21 06/10/21 Range/Units 06:00 06:08 07:50 WBC (3.98-10.04) K/mm3 RBC (3.98-5.22) M/mm3 Hgb (11.2-15.7) gm/dl Hct (34.1-44.9) % MCV (79.4-94.8) fl MCH (25.6-32.2) pg MCHC (32.2-35.5) g/dl RDW Std Deviation (36.4-46.3) fL Plt Count (182-369) K/mm3 MPV (9.4-12.3) fl Creatinine 0.7 (0.55-1.02) mg/dL Est Cr Clr Drug Dosing TNP Estimated GFR (MDRD) > 60 (>60) mL/min POC Glucose (70-99) mg/dL AST (15-37) U/L ALT (14-59) U/L Ur Random Creatinine 95.8 (30.0-125.0) mg/dL U Random Total Protein 24.0 H (0.0-11.8) mg/dL Protein/Creatinin Ratio 250.5 H (0-149) mg/g RPR (NONREACTIVE) SARS-CoV-2 RNA (AMINTA) Negative (NEGATIVE) Blood Type Gel Antibody Screen Screen RhIG Candidate? Rhogam Indicated 06/10/21 06/11/21 06/11/21 Range/Units 10:53 05:55 06:00 WBC 8.20 (3.98-10.04) K/mm3 RBC 3.08 L (3.98-5.22) M/mm3 Hgb 9.3 L D (11.2-15.7) gm/dl Hct 29.4 L (34.1-44.9) % MCV 95.5 H (79.4-94.8) fl MCH 30.2 (25.6-32.2) pg MCHC 31.6 L (32.2-35.5) g/dl RDW Std Deviation 44.0 (36.4-46.3) fL Plt Count 170 L D (182-369) K/mm3 MPV 9.3 L (9.4-12.3) fl Creatinine (0.55-1.02) mg/dL Est Cr Clr Drug Dosing Estimated GFR (MDRD) (>60) mL/min POC Glucose 71 (70-99) mg/dL AST (15-37) U/L ALT (14-59) U/L Ur Random Creatinine (30.0-125.0) mg/dL U Random Total Protein (0.0-11.8) mg/dL Protein/Creatinin Ratio (0-149) mg/g RPR (NONREACTIVE) SARS-CoV-2 RNA (AMINTA) (NEGATIVE) Blood Type O NEGATIVE Gel Antibody Screen Negative Screen 0 ros/5 flds - neg RhIG Candidate? Yes Rhogam Indicated Yes, baby rh pos H Med Orders - Current: Current Medications Diphenhydramine HCl (Diphenhydramine 50 Mg/Ml Sdv) 25 mg IVPUSH Q6H PRN PRN Reason: Itching or Nausea Last Admin: 06/10/21 11:17 Dose: 25 mg Documented by: Docusate Sodium (Docusate Sodium 100 Mg Cap) 100 mg PO Q12H PRN PRN Reason: Constipation Last Admin: 06/10/21 20:29 Dose: 100 mg Documented by: Ephedrine Sulfate (Ephedrine 50 Mg/Ml Sdv) 5 mg IVPUSH SEECOMMENT PRN PRN Reason: Other Oxytocin/Lactated Ringer's (Pitocin In Lr 10 Units/1,000 Ml) 10 unit in 1,000 mls @ 900 mls/hr IV ASDIRECTED JO Last Admin: 06/10/21 11:15 Dose: 150 munits/min, 900 mls/hr Documented by: Ibuprofen (Ibuprofen 600 Mg Tab) 600 mg PO Q6H PRN PRN Reason: mild pain or fever Naloxone HCl (Naloxone 0.4 Mg/Ml Sdv) 0.1 mg IVPUSH SEECOMMENT PRN PRN Reason: Respiratory Depression Oxycodone/Acetaminophen (Acetaminophen/Oxycodone 325-5 Mg Tab) 1 tab PO Q4H PRN PRN Reason: Pain (moderate 4-6) Oxycodone/Acetaminophen (Acetaminophen/Oxycodone 325-5 Mg Tab) 2 tab PO Q4H PRN PRN Reason: Pain (severe 7-10) Discontinued Medications Cefazolin Sodium (Cefazolin 1 Gm Vial) Confirm Administered Dose 2 gm .ROUTE .STK-MED ONE Stop: 06/10/21 07:16 Citric Acid/Sodium Citrate (Citric Acid/Sodium Citrate Solution 30 Ml Cup) 30 ml PO ONETIME ONE Stop: 06/10/21 06:31 Last Admin: 06/10/21 07:16 Dose: 30 ml Documented by: Cefazolin Sodium/Dextrose 2 gm (/ Premix) 50 mls @ 100 mls/hr IV ONETIME ONE Stop: 06/10/21 07:59 Last Admin: 06/10/21 10:49 Dose: Not Given Documented by: Oxytocin/Lactated Ringer's (Pitocin In Lr 10 Units/1,000 Ml) 10 unit in 1,000 mls @ 100 mls/hr IV ASDIRECTED JO; Protocol Lactated Ringer's (Ringers, Lactated) 1,000 mls @ 125 mls/hr IV ASDIRECTED JO Last Admin: 06/10/21 08:37 Dose: 125 mls/hr Documented by: Lactated Ringer's (Ringers, Lactated) Confirm Administered Dose 1,000 mls @ as directed .ROUTE .STK-MED ONE Stop: 06/10/21 07:49 Lactated Ringer's (Ringers, Lactated) Confirm Administered Dose 1,000 mls @ as directed .ROUTE .STK-MED ONE Stop: 06/10/21 08:14 Dextrose/Lactated Ringer's (Dextrose 5%-Lactated Ringers) 1,000 mls @ 125 mls/hr IV ASDIRECTED [facility] Stop: 06/10/21 17:56 Oxytocin/Lactated Ringer's (Pitocin In Lr 10 Units/1,000 Ml) Confirm Administered Dose 10 unit in 1,000 mls @ as directed IV .STK-MED ONE Stop: 06/10/21 11:12 Last Admin: 06/10/21 11:15 Dose: Not Given Documented by: Cefazolin Sodium/Dextrose 2 gm (/ Premix) 50 mls @ 50 mls/hr IV ONETIME ONE Stop: 06/10/21 13:44 Last Admin: 06/10/21 12:53 Dose: 50 mls/hr Documented by: Dextrose/Lactated Ringer's (Dextrose 5%-Lactated Ringers) 1,000 mls @ 125 mls/hr IV ASDIRECTED JO Stop: 06/11/21 04:29 Last Admin: 06/10/21 21:25 Dose: 125 mls/hr Documented by: Influenza Virus Vaccine (Flu Vacc [id number] 36mos Up/Pf 60 Mcg/0.5 Ml Syringe) 60 mcg IM .ONCE ONE Stop: 06/11/21 08:16 Ketorolac Tromethamine (Ketorolac 30 Mg/Ml Sdv) Confirm Administered Dose 30 mg .ROUTE .STK-MED ONE Stop: 06/10/21 08:18 Ketorolac Tromethamine (Ketorolac 30 Mg/Ml Sdv) 30 mg IVPUSH Q6H JO Stop: 06/11/21 02:31 Last Admin: 06/11/21 02:28 Dose: 30 mg Documented by: Meperidine HCl (Meperidine 50 Mg/Ml Vial) 12.5 mg IVPUSH ONETIME STA Stop: 06/10/21 08:53 Last Admin: 06/10/21 09:01 Dose: 12.5 mg Documented by: Methylergonovine Maleate (Methylergonovine 0.2 Mg/1 Ml Amp) 0.2 mg IM NOW STA Stop: 06/10/21 13:40 Last Admin: 06/10/21 13:48 Dose: 0.2 mg Documented by: Methylergonovine Maleate (Methylergonovine 0.2 Mg/1 Ml Amp) Confirm Administered Dose 0.2 mg .ROUTE .STK-MED ONE Stop: 06/10/21 13:43 Last Admin: 06/10/21 13:49 Dose: Not Given Documented by: Metoclopramide HCl (Metoclopramide 10 Mg/2 Ml Sdv) 10 mg IVPUSH ONETIME ONE Stop: 06/10/21 06:31 Last Admin: 06/10/21 07:17 Dose: 10 mg Documented by: Misoprostol (Misoprostol 100 Mcg Tab) 600 mcg PO ONETIME ONE Stop: 06/10/21 11:08 Last Admin: 06/10/21 11:15 Dose: Not Given Documented by: Misoprostol (Misoprostol 200 Mcg Tab) Confirm Administered Dose 600 mcg .ROUTE .STK-MED ONE Stop: 06/10/21 11:11 Last Admin: 06/10/21 11:15 Dose: 600 mcg Documented by: Morphine Sulfate (Morphine Pf 10 Mg/10 Ml Sdv) Confirm Administered Dose 10 mg .ROUTE .STK-MED ONE Stop: 06/10/21 07:16 Oxytocin (Oxytocin 10 Units/1 Ml Sdv) Confirm Administered Dose 10 unit .ROUTE .STK-MED ONE Stop: 06/10/21 08:03 Phenylephrine HCl (Phenylephrine 1% 10 Mg/Ml Sdv) Confirm Administered Dose 10 mg .ROUTE .STK-MED ONE Stop: 06/10/21 07:16 Sodium Chloride (Sodium Chloride 0.9% 10 Ml Syringe) 10 ml FLUSH ASDIRECTED PRN PRN Reason: Keep Vein Open - Infant Interaction Infant Disposition, : [place] in Room with Family Interaction: Holding Feeding: Attempted ; Nursed Fair/Poor Support Person: - Recovery Exam Fundal Tone: Firm Fundal Level: 1 Fingerbreadths Below Umbilicus Fundal Placement: Midline Lochia Amount: Scant, Small Lochia Color: Rubra/Red Perineum Description: Intact, Minimal Bruising/Swelling Episiotomy/Laceration: None Bladder Status: Voiding Urinary Elimination: Voided - Exam General: Alert, Oriented, Cooperative Lungs: Clear to Auscultation, Normal Respiratory Effort Cardiovascular: Regular Rate, Regular Rhythm GI/Abdominal Exam: Soft, Non-Tender Extremities: Normal Inspection - Problem List & Annotations (1) History of SNOMED Code(s): 324187860 Code(s): Z98.891 - HISTORY OF UTERINE SCAR FROM PREVIOUS SURGERY Status: Acute Current Visit: No (2) 39 weeks gestation of SNOMED Code(s): 74992415 Code(s): Z3A.39 - 39 WEEKS GESTATION OF Status: Acute Current Visit: Yes (3) Gestational diabetes SNOMED Code(s): 40147219 Code(s): O24.419 - GESTATIONAL DIABETES MELLITUS IN , UNSP CONTROL Status: Acute Current Visit: Yes Qualifiers: Gestational diabetes mellitus control: insulin-controlled Trimester: third trimester Qualified Code(s): O24.414 - Gestational diabetes mellitus in , insulin controlled (4) Rh negative state in antepartum period SNOMED Code(s): 806057069 Code(s): O26.899 - OTH RELATED CONDITIONS, UNSPECIFIED TRIMESTER; Z67.91 - UNSPECIFIED BLOOD TYPE, RH NEGATIVE Status: Acute Current Visit: Yes (5) Status post repeat low transverse section SNOMED Code(s): 747085508, 14698594, 385983545, 936680409, 662945522 Code(s): Z98.891 - HISTORY OF UTERINE SCAR FROM PREVIOUS SURGERY Status: Acute Current Visit: Yes - Problem List Review Problem List Initiated/Reviewed/Updated: Yes - My Orders Last 24 Hours: My Active Orders 06/10/21 Breakfast Regular Diet [DIET] 06/10/21 09:57 Acetaminophen/oxyCODONE [Percocet 325-5 MG] 1 tab PO Q4H PRN Acetaminophen/oxyCODONE [Percocet 325-5 MG] 2 tab PO Q4H PRN Docusate Sodium [Colace] 100 mg PO Q12H PRN Naloxone [Narcan] 0.1 mg IVPUSH SEECOMMENT PRN diphenhydrAMINE [Benadryl] 25 mg IVPUSH Q6H PRN ePHEDrine [ePHEDrine sulfate] 5 mg IVPUSH SEECOMMENT PRN 06/10/21 09:57 Activity as Tolerated [RC] .Routine Antiembolic Devices [RC] PER UNIT ROUTINE Communication Order [RC] PER UNIT ROUTINE Intake and Output [RC] Q4H Notify Provider Intake and Out [RC] ASDIRECTED RT Incentive Spirometry [RC] Q2HWA Vital Signs [RC] Q1HR Assess Lochia [WOMSER] Per Unit Routine Assess Uterine Involution [WOMSER] Per Unit Routine Breast Pump [WOMSER] Per Unit Routine Peripheral IV Discontinue [OM.PC] Routine Sequential Compression Device [OM.PC] Per Unit Routine 06/10/21 11:15 Oxytocin/Lactated Ringers [Pitocin in LR 10 Units/1,000 ML] 10 unit in 1,000 ml IV ASDIRECTED 06/11/21 08:29 Urinary Catheter Removal [RC] Per Unit Routine 06/11/21 08:30 Ibuprofen [Motrin] 600 mg PO Q6H PRN - Assessment Assessment:: PPD#1 - Plan Plan:: * Bleeding improved after exam, Cytotec, Methergine yesterday. Hb today with as expected drop. Patient feeling well. Will need to eventually continue iron and PNV on discharge * Breast feeding * Fasting blood sugar this AM appropriate. 2hr GTT at 6 weeks * Baby Rh positive, Rhogam given * Discharge home in 1-2 days
--- NOTE | 2021-06-11 07:39 | PCM48HPAN ---
Post Anesthesia Note - EVALUATION WITHIN 48HRS OF ANESTHETIC Vital Signs in Normal Range: Yes Patient Participated in Evaluation: Yes Respiratory Function Stable: Yes Airway Patent: Yes Cardiovascular Function Stable: Yes Hydration Status Stable: Yes Pain Control Satisfactory: Yes Nausea and Vomiting Control Satisfactory: Yes Mental Status Recovered: Yes Vital Signs: Last Vital Signs Temp 36.4 C 06/11/21 02:37 Pulse 77 06/11/21 02:37 Resp 14 06/11/21 07:00 BP 115/76 06/11/21 02:37 Pulse Ox 100 06/11/21 07:00 - COMMENTS/OBSERVATIONS Free Text/Narrative:: no anesthesia complications noted
[2021-06-11] MEDS ORDERED: FLU Vacc QS2021-22 36MOS UP/PF 60 MCG/0.5 ML Syringe IM ONE (08:15)
[2021-06-11] MEDS ORDERED: Ibuprofen 600 MG Tab PO PRN (08:30)
[2021-06-11] MEDS: Docusate Sodium 100 MG Cap PO PRN (10:26)
[2021-06-11] MEDS: Acetaminophen/oxyCODONE 325-5 MG Tab PO PRN ×2 (10:26→20:28)
[2021-06-12] MEDS: Acetaminophen/oxyCODONE 325-5 MG Tab PO PRN ×2 (02:21→08:56)
[2021-06-12] MEDS ORDERED: Measles, Mumps & Rubella Vaccine 0.5 ML SDV SUBCUT ONE (08:00)
[2021-06-12 08:53] VITALS: BP 146/62; PULSE 99
--- NOTE | 2021-06-12 09:44 | PCM.DCSUM1 ---
Discharge Summary - Hospital Course Free Text/Narrative:: Divina is a 25-year-old 3 para 2-0-0-2 female who was admitted on 06/02/2021 for elective repeat section. She has had 2 previous sections. She was taken to surgery on that a.m. and delivered a viable, cm, female infant with Apgars of 8 and 9. She was 39-1/7 weeks at the time of delivery. She has a history of gestational diabetes. Please see operative report for details. Postoperatively patient has done well. She is ambulating without concern, has minimal lochia, is nursing without problems and desires discharge home. Diagnosis: Stroke: No - Discharge Data Discharge Date: 06/12/21 Discharge Disposition: Home, Self-Care 01 Condition: Good - Referral to Home Health Primary Care Physician: BRITNEY Conrad - Discharge Diagnosis/Problem(s) (1) 39 weeks gestation of SNOMED Code(s): 78090722 ICD Code: Z3A.39 - 39 WEEKS GESTATION OF Status: Acute Current Visit: Yes (2) Gestational diabetes SNOMED Code(s): 31314799 ICD Code: O24.419 - GESTATIONAL DIABETES MELLITUS IN , UNSP CONTROL Status: Acute Current Visit: Yes Qualifiers: Gestational diabetes mellitus control: insulin-controlled Trimester: third trimester Qualified Code(s): O24.414 - Gestational diabetes mellitus in , insulin controlled (3) History of SNOMED Code(s): 480106644 ICD Code: Z98.891 - HISTORY OF UTERINE SCAR FROM PREVIOUS SURGERY Status: Acute Current Visit: No - Patient Summary/Data Operative Procedure(s) Performed: Repeat low transverse - Patient Instructions Diet: Regular Diet as Tolerated (Nursing diet with increased calories and calcium is recommended) Activity: As Tolerated (No lifting greater than 15 pounds or driving a car x1 week. No intercourse or tampons until seen back.) Driving: Do Not Drive Showering/Bathing: May Shower Wound/Incision Care: Keep Operative Site/Wound Site Clean and Dry Notify Provider of: Fever, Increased Pain, Swelling and Redness, Nausea and/or Vomiting - Discharge Plan Home Medications: Home Meds Pnv No.95/Ferrous Fum/Folic AC [ Vitamin Tablet] 1 tab PO DAILY 03/20/20 [History] Escitalopram [Lexapro] 20 mg PO DAILY 06/10/21 [History] Multivit-Min/Calc/Biotin/D3/FA [Biotin Plus-Calcium & Vit D3] 1 each PO DAILY 06/10/21 [History] Acetaminophen/oxyCODONE [Percocet 325-5 MG] 2 tab PO Q4H PRN tablet 06/12/21 [Rx] Ibuprofen [Motrin] 600 mg PO Q6H PRN tablet 06/12/21 [Rx] Patient Handouts: Care After Delivery Referrals: Linda Olivo MD [Physician] - - Discharge Summary/Plan Comment DC Time >30 min.: No Total # of Minutes for Discharge Time: 10 Discharge Summary/Plan Comment: Discharge instructions: 1. Discharge home 2. Diet, activity and follow-up discussed with patient. Recommend nursing diet with increased calories and calcium. 3. Precautions given concern increased pain, bleeding, temperature, signs/symptoms of DVT/PE. 4. Medications per home medication was printed, discussed with and given to the patient. 5. Return to clinic-Dr. Olivo at [facility] in 3 weeks. Diagnosis: 1. 39-week term -delivered via repeat 2. Gestational diabetes 3. History of previous x2 - Patient Data Vitals - Most Recent: Last Vital Signs Temp 37.0 C 06/12/21 08:49 Pulse 99 06/12/21 08:49 Resp 14 06/12/21 08:49 BP 146/62 H 06/12/21 08:49 Pulse Ox 98 06/12/21 08:49 Weight - Most Recent: 99.427 kg I&O - Last 24 hours: Intake & Output 06/11/21 06/12/21 06/12/21 22:59 06:59 14:59 Intake Total 480 Balance 480 Med Orders - Current: Current Medications Diphenhydramine HCl (Diphenhydramine 50 Mg/Ml Sdv) 25 mg IVPUSH Q6H PRN PRN Reason: Itching or Nausea Last Admin: 06/10/21 11:17 Dose: 25 mg Documented by: Docusate Sodium (Docusate Sodium 100 Mg Cap) 100 mg PO Q12H PRN PRN Reason: Constipation Last Admin: 06/11/21 10:26 Dose: 100 mg Documented by: Ephedrine Sulfate (Ephedrine 50 Mg/Ml Sdv) 5 mg IVPUSH SEECOMMENT PRN PRN Reason: Other Oxytocin/Lactated Ringer's (Pitocin In Lr 10 Units/1,000 Ml) 10 unit in 1,000 mls @ 900 mls/hr IV ASDIRECTED JO Last Infusion: 06/10/21 11:20 Dose: 25 munits/min, 150 mls/hr Documented by: Ibuprofen (Ibuprofen 600 Mg Tab) 600 mg PO Q6H PRN PRN Reason: mild pain or fever Last Admin: 06/11/21 16:00 Dose: 600 mg Documented by: Naloxone HCl (Naloxone 0.4 Mg/Ml Sdv) 0.1 mg IVPUSH SEECOMMENT PRN PRN Reason: Respiratory Depression Oxycodone/Acetaminophen (Acetaminophen/Oxycodone 325-5 Mg Tab) 1 tab PO Q4H PRN PRN Reason: Pain (moderate 4-6) Last Admin: 06/11/21 20:28 Dose: 1 tab Documented by: Oxycodone/Acetaminophen (Acetaminophen/Oxycodone 325-5 Mg Tab) 2 tab PO Q4H PRN PRN Reason: Pain (severe 7-10) Last Admin: 06/12/21 08:56 Dose: 2 tab Documented by: Discontinued Medications Cefazolin Sodium (Cefazolin 1 Gm Vial) Confirm Administered Dose 2 gm .ROUTE .STK-MED ONE Stop: 06/10/21 07:16 Citric Acid/Sodium Citrate (Citric Acid/Sodium Citrate Solution 30 Ml Cup) 30 ml PO ONETIME ONE Stop: 06/10/21 06:31 Last Admin: 06/10/21 07:16 Dose: 30 ml Documented by: Cefazolin Sodium/Dextrose 2 gm (/ Premix) 50 mls @ 100 mls/hr IV ONETIME ONE Stop: 06/10/21 07:59 Last Admin: 06/10/21 10:49 Dose: Not Given Documented by: Oxytocin/Lactated Ringer's (Pitocin In Lr 10 Units/1,000 Ml) 10 unit in 1,000 mls @ 100 mls/hr IV ASDIRECTED JO; Protocol Lactated Ringer's (Ringers, Lactated) 1,000 mls @ 125 mls/hr IV ASDIRECTED JO Last Admin: 06/10/21 08:37 Dose: 125 mls/hr Documented by: Lactated Ringer's (Ringers, Lactated) Confirm Administered Dose 1,000 mls @ as directed .ROUTE .[facility] ONE Stop: 06/10/21 07:49 Lactated Ringer's (Ringers, Lactated) Confirm Administered Dose 1,000 mls @ as directed .ROUTE .[facility] ONE Stop: 06/10/21 08:14 Dextrose/Lactated Ringer's (Dextrose 5%-Lactated Ringers) 1,000 mls @ 125 mls/hr IV ASDIRECTED [facility] Stop: 06/10/21 17:56 Oxytocin/Lactated Ringer's (Pitocin In Lr 10 Units/1,000 Ml) Confirm Administered Dose 10 unit in 1,000 mls @ as directed IV .[facility] ONE Stop: 06/10/21 11:12 Last Admin: 06/10/21 11:15 Dose: Not Given Documented by: Cefazolin Sodium/Dextrose 2 gm (/ Premix) 50 mls @ 50 mls/hr IV ONETIME ONE Stop: 06/10/21 13:44 Last Admin: 06/10/21 12:53 Dose: 50 mls/hr Documented by: Dextrose/Lactated Ringer's (Dextrose 5%-Lactated Ringers) 1,000 mls @ 125 mls/hr IV ASDIRECTED [facility] Stop: 06/11/21 04:29 Last Admin: 06/10/21 21:25 Dose: 125 mls/hr Documented by: Influenza Virus Vaccine (Flu Vacc [id number] 36mos Up/Pf 60 Mcg/0.5 Ml Syringe) 60 mcg IM .ONCE ONE Stop: 06/11/21 08:16 Ketorolac Tromethamine (Ketorolac 30 Mg/Ml Sdv) Confirm Administered Dose 30 mg .ROUTE .STK-MED ONE Stop: 06/10/21 08:18 Ketorolac Tromethamine (Ketorolac 30 Mg/Ml Sdv) 30 mg IVPUSH Q6H JO Stop: 06/11/21 02:31 Last Admin: 06/11/21 02:28 Dose: 30 mg Documented by: Measles/Mumps/Rubella Vaccine Live (Measles, Mumps & Rubella Vaccine 0.5 Ml Sdv) 0.5 ml SUBCUT .ONCE ONE Stop: 06/12/21 08:01 Meperidine HCl (Meperidine 50 Mg/Ml Vial) 12.5 mg IVPUSH ONETIME STA Stop: 06/10/21 08:53 Last Admin: 06/10/21 09:01 Dose: 12.5 mg Documented by: Methylergonovine Maleate (Methylergonovine 0.2 Mg/1 Ml Amp) 0.2 mg IM NOW STA Stop: 06/10/21 13:40 Last Admin: 06/10/21 13:48 Dose: 0.2 mg Documented by: Methylergonovine Maleate (Methylergonovine 0.2 Mg/1 Ml Amp) Confirm Administered Dose 0.2 mg .ROUTE .STK-MED ONE Stop: 06/10/21 13:43 Last Admin: 06/10/21 13:49 Dose: Not Given Documented by: Metoclopramide HCl (Metoclopramide 10 Mg/2 Ml Sdv) 10 mg IVPUSH ONETIME ONE Stop: 06/10/21 06:31 Last Admin: 06/10/21 07:17 Dose: 10 mg Documented by: Miscellaneous Medication (Phenylephrine Hcl In 0.9% Nacl 1 Mg/10 Ml Syringe) 1 mg .ROUTE .STK-MED ONE Stop: 06/10/21 07:16 Misoprostol (Misoprostol 100 Mcg Tab) 600 mcg PO ONETIME ONE Stop: 06/10/21 11:08 Last Admin: 06/10/21 11:15 Dose: Not Given Documented by: Misoprostol (Misoprostol 200 Mcg Tab) Confirm Administered Dose 600 mcg .ROUTE .STK-MED ONE Stop: 06/10/21 11:11 Last Admin: 06/10/21 11:15 Dose: 600 mcg Documented by: Morphine Sulfate (Morphine Pf 10 Mg/10 Ml Sdv) Confirm Administered Dose 10 mg .ROUTE .STK-MED ONE Stop: 06/10/21 07:16 Oxytocin (Oxytocin 10 Units/1 Ml Sdv) Confirm Administered Dose 10 unit .ROUTE .STK-MED ONE Stop: 06/10/21 08:03 Phenylephrine HCl (Phenylephrine 1% 10 Mg/Ml Sdv) Confirm Administered Dose 10 mg .ROUTE .STK-MED ONE Stop: 06/10/21 07:16 Sodium Chloride (Sodium Chloride 0.9% 10 Ml Syringe) 10 ml FLUSH ASDIRECTED PRN PRN Reason: Keep Vein Open
== END 2021-06-12 11:40 | disposition home or self-care (01) | DRG 788 ==
LOC: JD.OB 05:40
PROVIDERS: ADMIT Obstetrics & Gynecology; ATTEND Obstetrics & Gynecology
PROC: 10D00Z1 Extraction of Products of Conception, Low, Open Approach (ICD-10-PCS; principal; 2021-06-10)
PROC: 3E0334Z Introduction of Serum, Toxoid and Vaccine into Peripheral Vein, Percutaneous Approach (ICD-10-PCS; 2021-06-10)
PROC: 3E0234Z Introduction of Serum, Toxoid and Vaccine into Muscle, Percutaneous Approach (ICD-10-PCS; 2021-06-12)
DX: O34.211 Maternal care for low transverse scar from previous cesarean delivery (principal); Z37.0 Single live birth; Z3A.39 39 weeks gestation of pregnancy; O24.424 Gestational diabetes mellitus in childbirth, insulin controlled; O99.52 Diseases of the respiratory system complicating childbirth; J45.909 Unspecified asthma, uncomplicated; O99.344 Other mental disorders complicating childbirth; F41.9 Anxiety disorder, unspecified; F32.A Depression, unspecified; Z20.822 Contact with and (suspected) exposure to COVID-19; O26.893 Other specified pregnancy related conditions, third trimester; Z67.41 Type O blood, Rh negative; Z23 Encounter for immunization
CPT/HCPCS: 01961; 36415; 59025; 82565; 82570; 82947; 84156; 84450; 84460; 85025; 85027; 85461; 86592; 86850; 86900; 86901; 90471; 90707; A9270-GY; J0690; J1200; J1885; J2175; J2210; J2270; J2370; J2590; J2765; J2790; J7120; J7121; U0002